=== PATIENT | female | born 1950 | race Two or more races ===

== ENCOUNTER 2022-10-03 22:10 | Inpatient (IN) | payer OTHER ==
[~2022-10-03] VITALS: Ht 152.4 cm; Wt 63.5 kg
[2022-10-03] MEDS ORDERED: ROZEREM8 MG PO (22:23)
[2022-10-03] MEDS ORDERED: CLONAZEPAM1 M1 PO (22:23)
[2022-10-12] MEDS ORDERED: RESTORIL7.5 MG PO (14:17)
[2022-10-12] MEDS ORDERED: VITAMIN D3125 MC2 PO (14:17)
[2022-10-12] MEDS ORDERED: METOPROLOL TART50 MG PO (14:17)
[2022-10-12] MEDS ORDERED: HYDRALAZINE HCL50 MG PO (14:17)
[2022-10-12] MEDS ORDERED: COZAAR50 MG PO (14:17)
== END 2022-10-12 19:00 | disposition home or self-care (01) | DRG 308 ==
LOC: ER 22:10 → ICU 10-04 16:23 → ICU-2 10-04 16:23 → ICU 10-05 12:40 → MEDI 10-10 19:00
PROVIDERS: ADMIT Internal Medicine; ATTEND Internal Medicine
PROC: B24BZZZ Ultrasonography of Heart with Aorta (ICD-10-PCS; 2022-10-04)
PROC: 02HV33Z Insertion of Infusion Device into Superior Vena Cava, Percutaneous Approach (ICD-10-PCS; principal; 2022-10-06)
PROC: 4A12X4Z Monitoring of Cardiac Electrical Activity, External Approach (ICD-10-PCS; 2022-10-10)
DX: I48.0 Paroxysmal atrial fibrillation (principal); G93.41 Metabolic encephalopathy; N39.0 Urinary tract infection, site not specified; G21.11 Neuroleptic induced parkinsonism; G30.9 Alzheimer's disease, unspecified; F02.80 Dementia in other diseases classified elsewhere, unspecified severity, without behavioral disturbance, psychotic disturbance, mood disturbance, and anxiety; E78.5 Hyperlipidemia, unspecified; F32.9 Major depressive disorder, single episode, unspecified; B96.4 Proteus (mirabilis) (morganii) as the cause of diseases classified elsewhere; G20 Parkinson's disease; Z20.822 Contact with and (suspected) exposure to COVID-19; I10 Essential (primary) hypertension; Z74.01 Bed confinement status

== ENCOUNTER 2023-05-03 18:36 | Inpatient (IN) | payer OTHER ==
[~2023-05-03] VITALS: Ht 162.6 cm; Wt 444.5 kg
[~2023-05-03 18:36] MED LIST: CLONAZEPAM1 M1 PO; COZAAR50 MG PO; HYDRALAZINE HCL50 MG PO; METOPROLOL TART50 MG PO; RESTORIL7.5 MG PO; ROZEREM8 MG PO; VITAMIN D3125 MC2 PO
[2023-05-03] MEDS ORDERED: ELIQUIS2.5 MG (18:49)
--- NOTE | 2023-05-03 18:49 | NUR ---
SE RECIBE PTE ALERTA Y DESORIENTADA EN AMBULANCIA ACOMPANA[place] DE FAMILIAR. PTE REFIERE TRAER A PTE POR FALTA DE APETITO Y DIFICULTAD PARA HABLAR, PTE SE OBSERVA CON DIFICULTAD PARA HABLAR Y NO PODER CERRAR MANDIBULA. SE MIDEN S/V A PTE Y SE REALIZA EKG. SE PRESENTA EKG A DR. SEGAL. PTE SE COLOCA EN UNIDAD DE CRITICO. PTE SE CONTECTA A MONITOR CARDIACO Y OXIMETRIA CONTINUA.
--- NOTE | 2023-05-03 20:06 | NUR ---
SE RECIBE PTE ALERTA Y DESORIENTADA Y SE COLOCA EN UNIDAD DE CRITICO #1 EN CAMA BAJA CON BARANDAS ELEVADAS. SE CONECTA A MONITOR CARDIACO, SATUROMETRO Y CANULA A 2LT, HR:118, SAT:100% Y RR:28. SE CANALIZA X2 EN BRAZO STEVE CON ANGIOS #18 Y #20 PATENTE LAVELLE DE EDEMA Y ENROJECIMIENTO. BRIAN MANZANO ADMINISTRA MEDICAMENTO EVANGELINA ORDNE MEDICA BAJO MEDIDAS ASEPTICAS. SE JASWINDER MUESTRAS DE LABORATORIO EVANGELINA ORDNE MEDICA BAJO MEDIDAS ASEPTICAS Y ESTERILES. SE INSERTA EISENBERG EVANGELINA ORDEN MEDICA BAJO MADIDAS ESTERILES, SE OBSERVA ORINA DE COLOR AMARILLO INTESO. SE OFRECE CAMBIO DE PANAL. SE OBSERVA ULCERA EN GLUTEO DERECHO. SE OBSERVAN LACERACIONES EN PIE DERECHO Y MANO IZQUIERDA. SE MANTIENE EN OBSERVACION POR TRATAMIENTO.
[2023-05-03 20:21] LABS: INR 1.09; PARTIAL THROMBOPLASTIN TIME 27.2 SECONDS (22.0-34.0); PROTHROMBIN TIME 11.4 SECONDS (9.0-11.5)
[2023-05-03 20:27] LABS: ALBUMIN 2.6 gm/dL (3.4-5.0); BILIRUBIN TOTAL 0.32 mg/dL (0.3-1.2); CREATININE SERUM 0.52 mg/dL (0.55-1.02); GFR 115.27; GLOBULINA 4.3 G/DL (2.4-3.5); POTASSIUM 4.22 mEq/L (3.5-5.1); TOTAL PROTEIN 6.9 gm/dL (6.4-8.2)
[2023-05-03 20:39] LABS: HEMATOCRIT 41.4 % (36.0-45.00); HEMOGLOBIN 12.9 g/dL (12.0-15.00); MEAN CELL VOLUME 89.1 fL (80.00-100.00); MEAN CORPUSCULAR HEMOGLOBIN 27.8 pg (27.00-32.0); MEAN CORPUSCULAR HGB CONC 31.2 g/dl (32.0-36.0); PLATELET COUNT 372 K/uL (150-450); RED BLOOD COUNT 4.65 M/uL (4.00-6.00)
[2023-05-03 20:40] LABS: RED CELL DISTRIBUTION WIDTH 16.6 % (11.5-14.5)
[2023-05-03 21:03] LABS: URINE APPEARANCE Clear; URINE BILIRRUBIN Negative (NEGATIVE); URINE BLOOD Negative; URINE COLOR Yellow; URINE GLUCOSE Negative (NEGATIVE); URINE LEUKOCYTE Negative; URINE NITRATE Negative; URINE PROTEIN Trace (NEGATIVE)
[2023-05-03 21:06] LABS: URINE BACTERIA 16.3 uL (0.0-1933); URINE EPITHELIAL CELLS 23.3 uL (0.0-38.8); URINE RBC 11.3 uL (0.0-20.8); URINE WBC 1.8 uL (0.0-23.2)
[2023-05-03 21:33] LABS: URINE CRYSTALS MANY /HPF
--- NOTE | 2023-05-03 22:03 | NUR ---
9:51PM SE NOTIFICA ABG A PEERSONAL DE TERAPIA RESPIRATORIA MR. DIAZ Y SE NOTICA CHEST PORTABLE.
[2023-05-03 22:09] LABS: ABG PH 7.546 (7.35-7.45); ABG PO2 108.2 mmHg (80-100); BASE EXCESS 1.8 mmol/l; BICARBONATE 22.9 mmol/l (23-25); SaO2 98.9 %; Tco2 23.7 mmol/l
[2023-05-03 22:46] LABS: o2 28 %
[2023-05-03 22:47] LABS: allen test SATISFACTORY; puncture site RADIAL RIGHT
[2023-05-04 00:31] LABS: CKMB 6.8 NG/ML (0.5-3.6)
[2023-05-04 06:13] LABS: ABG PH 7.558 (7.35-7.45); ABG PO2 124.6 mmHg (80-100); ABG pCO2 25.7 mmHg (35-45); BASE EXCESS 1.7 mmol/l; BICARBONATE 22.4 mmol/l (23-25)
[2023-05-04 06:14] LABS: Tco2 23.2 mmol/l; allen test SATISFACTORY; o2 32 %; puncture site RADIAL RIGHT
[2023-05-04 06:15] LABS: SaO2 99.3 %
[2023-05-04 08:10] LABS: PH,URINE 7.5 (5.0-8.0); URINE APPEARANCE Clear; URINE BILIRRUBIN Negative (NEGATIVE); URINE BLOOD NHT; URINE COLOR Yellow; URINE GLUCOSE Negative (NEGATIVE); URINE LEUKOCYTE Negative; URINE NITRATE Negative; URINE PROTEIN Trace (NEGATIVE)
[2023-05-04 08:12] LABS: URINE BACTERIA 49.1 uL (0.0-1933); URINE RBC 78.4 uL (0.0-20.8); URINE WBC 10.5 uL (0.0-23.2)
[2023-05-04 08:41] LABS: INR 1.09; PARTIAL THROMBOPLASTIN TIME 28.1 SECONDS (22.0-34.0); PROTHROMBIN TIME 11.4 SECONDS (9.0-11.5)
[2023-05-04 08:50] LABS: ALBUMIN 2.2 gm/dL (3.4-5.0); BILIRUBIN TOTAL 0.39 mg/dL (0.3-1.2); BILIRUBIN,CONJUGATED 0.14 mg/dL (0.0-0.2); BILIRUBIN,UNCONJUGATED 0.25 mg/dL (0.0-0.6); CALCIUM 8.4 mg/dL (8.5-10.1); CHOL HDL RATIO 4.2 (0-5.0); CREATININE SERUM 0.55 mg/dL (0.55-1.02); GFR 108.05; GLOBULINA 4.2 G/DL (2.4-3.5); POTASSIUM 3.73 mEq/L (3.5-5.1); TOTAL PROTEIN 6.4 gm/dL (6.4-8.2)
[2023-05-04 08:52] LABS: HEMATOCRIT 35.7 % (36.0-45.00); HEMOGLOBIN 11.3 g/dL (12.0-15.00); MEAN CELL VOLUME 88.6 fL (80.00-100.00); MEAN CORPUSCULAR HEMOGLOBIN 28.1 pg (27.00-32.0); MEAN CORPUSCULAR HGB CONC 31.7 g/dl (32.0-36.0); PLATELET COUNT 361 K/uL (150-450); RED BLOOD COUNT 4.03 M/uL (4.00-6.00); RED CELL DISTRIBUTION WIDTH 16.8 % (11.5-14.5)
[2023-05-04 09:03] LABS: C-REACTIVE PROTEIN 1.42 MG/DL (0.00-0.29); CKMB 6.8 NG/ML (0.5-3.6)
[2023-05-04 10:22] LABS: ERYTHROCYTE SEDIMENTATION RATE 56 mm/hr
[2023-05-04 18:11] LABS: CKMB 4.5 NG/ML (0.5-3.6)
[2023-05-06 07:05] LABS: HEMATOCRIT 36.2 % (36.0-45.00); HEMOGLOBIN 11.6 g/dL (12.0-15.00); MEAN CELL VOLUME 88.9 fL (80.00-100.00); MEAN CORPUSCULAR HEMOGLOBIN 28.6 pg (27.00-32.0); MEAN CORPUSCULAR HGB CONC 32.1 g/dl (32.0-36.0); PLATELET COUNT 334 K/uL (150-450); RED BLOOD COUNT 4.07 M/uL (4.00-6.00); RED CELL DISTRIBUTION WIDTH 17.1 % (11.5-14.5)
[2023-05-06 07:28] LABS: ALBUMIN 2.2 gm/dL (3.4-5.0); BILIRUBIN TOTAL 0.3 mg/dL (0.3-1.2); CALCIUM 8.2 mg/dL (8.5-10.1); CREATININE SERUM 0.68 mg/dL (0.55-1.02); GFR 84.58; GLOBULINA 3.6 G/DL (2.4-3.5); MAGNESIUM 1.9 mg/dL (1.8-2.4); PHOSPHOROUS 2.6 mg/dL (2.5-4.9); TOTAL PROTEIN 5.8 gm/dL (6.4-8.2)
[2023-05-06 07:59] LABS: POTASSIUM 2.93 mEq/L (3.5-5.1)
[2023-05-08 07:01] LABS: HEMATOCRIT 39.5 % (36.0-45.00); HEMOGLOBIN 12.8 g/dL (12.0-15.00); MEAN CELL VOLUME 87.6 fL (80.00-100.00); MEAN CORPUSCULAR HEMOGLOBIN 28.3 pg (27.00-32.0); MEAN CORPUSCULAR HGB CONC 32.3 g/dl (32.0-36.0); PLATELET COUNT 255 K/uL (150-450); RED BLOOD COUNT 4.51 M/uL (4.00-6.00); RED CELL DISTRIBUTION WIDTH 16.6 % (11.5-14.5)
[2023-05-08 08:03] LABS: ALBUMIN 2.2 gm/dL (3.4-5.0); BILIRUBIN TOTAL 0.64 mg/dL (0.3-1.2); CALCIUM 8.2 mg/dL (8.5-10.1); CREATININE SERUM 0.54 mg/dL (0.55-1.02); GFR 110.36; GLOBULINA 3.8 G/DL (2.4-3.5); MAGNESIUM 1.6 mg/dL (1.8-2.4); PHOSPHOROUS 2.5 mg/dL (2.5-4.9)
[2023-05-08 08:05] LABS: POTASSIUM 2.95 mEq/L (3.5-5.1)
[2023-05-10 08:03] LABS: INR 1.04; PARTIAL THROMBOPLASTIN TIME 34.5 SECONDS (22.0-34.0); PROTHROMBIN TIME 10.9 SECONDS (9.0-11.5)
[2023-05-10 08:37] LABS: BILIRUBIN TOTAL 0.63 mg/dL (0.3-1.2); CREATININE SERUM 0.46 mg/dL (0.55-1.02); GFR 132.79; GLOBULINA 3.5 G/DL (2.4-3.5); POTASSIUM 3.15 mEq/L (3.5-5.1); TOTAL PROTEIN 5.5 gm/dL (6.4-8.2)
[2023-05-10 09:15] LABS: HEMATOCRIT 33.6 % (36.0-45.00); HEMOGLOBIN 11.2 g/dL (12.0-15.00); MEAN CELL VOLUME 86.1 fL (80.00-100.00); MEAN CORPUSCULAR HEMOGLOBIN 28.6 pg (27.00-32.0); MEAN CORPUSCULAR HGB CONC 33.2 g/dl (32.0-36.0); PLATELET COUNT 230 K/uL (150-450); RED CELL DISTRIBUTION WIDTH 16.5 % (11.5-14.5)
[2023-05-10 12:45] LABS: ABG PH 7.522 (7.35-7.45); ABG PO2 185.5 mmHg (80-100); BASE EXCESS 5.4 mmol/l; BICARBONATE 28.1 mmol/l (23-25); SaO2 99.7 %; Tco2 29.2 mmol/l
[2023-05-10 13:02] LABS: allen test SATISFACTORY; o2 32 %; puncture site RADIAL RIGHT
[2023-05-11 07:36] LABS: ALBUMIN 2.1 gm/dL (3.4-5.0); BILIRUBIN TOTAL 0.79 mg/dL (0.3-1.2); CALCIUM 8.4 mg/dL (8.5-10.1); CREATININE SERUM 0.38 mg/dL (0.55-1.02); GFR 165.09; GLOBULINA 3.8 G/DL (2.4-3.5); PHOSPHOROUS 2.1 mg/dL (2.5-4.9); POTASSIUM 4.69 mEq/L (3.5-5.1); TOTAL PROTEIN 5.9 gm/dL (6.4-8.2)
[2023-05-11 08:17] LABS: ABG PH 7.333 (7.35-7.45); ABG PO2 28.6 mmHg (80-100); ABG pCO2 33.9 mmHg (35-45); BASE EXCESS -7.2 mmol/l; BICARBONATE 17.6 mmol/l (23-25); SaO2 47.1 %; Tco2 18.6 mmol/l; allen test SATISFACTORY; o2 100 %; puncture site RADIAL LEFT
[2023-05-11 10:36] LABS: HEMATOCRIT 35.7 % (36.0-45.00); HEMOGLOBIN 11.1 g/dL (12.0-15.00); MEAN CELL VOLUME 91.5 fL (80.00-100.00); MEAN CORPUSCULAR HEMOGLOBIN 28.6 pg (27.00-32.0); MEAN CORPUSCULAR HGB CONC 31.2 g/dl (32.0-36.0); PLATELET COUNT 247 K/uL (150-450); RED CELL DISTRIBUTION WIDTH 16.7 % (11.5-14.5)
[2023-05-11 11:04] LABS: PARTIAL THROMBOPLASTIN TIME 37.3 SECONDS (22.0-34.0); PROTHROMBIN TIME 12.4 SECONDS (9.0-11.5)
[2023-05-11 11:08] LABS: D DIMER > 35.20 MG/L
[2023-05-11 11:15] LABS: CHOL HDL RATIO 3.3 (0-5.0); MAGNESIUM 2.7 mg/dL (1.8-2.4)
[2023-05-11 11:30] LABS: CKMB 13.8 NG/ML (0.5-3.6)
[2023-05-11 12:30] LABS: ABG PO2 68.6 mmHg (80-100); ABG pCO2 38.8 mmHg (35-45); BASE EXCESS -12.6 mmol/l; BICARBONATE 17.7 mmol/l (23-25); SaO2 86.9 %; Tco2 14.7 mmol/l; allen test SATISFACTORY; o2 15.9 %; puncture site RADIAL RIGHT
[2023-05-11 12:31] LABS: ABG PH 7.197 (7.35-7.45)
== END 2023-05-11 20:42 | disposition expired ==
LOC: ER 18:36 → ICU 22:49 → ICU-2 22:49 → ICU 05-05 01:13
PROVIDERS: Emergency Medicine; General Practice; Internal Medicine; ADMIT Internal Medicine; ATTEND Internal Medicine
PROC: BW28ZZZ Computerized Tomography (CT Scan) of Head (ICD-10-PCS; 2023-05-03)
PROC: B24BYZZ Ultrasonography of Heart with Aorta using Other Contrast (ICD-10-PCS; 2023-05-03)
PROC: 0DH67UZ Insertion of Feeding Device into Stomach, Via Natural or Artificial Opening (ICD-10-PCS; principal; 2023-05-08)
PROC: 3E0G76Z Introduction of Nutritional Substance into Upper GI, Via Natural or Artificial Opening (ICD-10-PCS; 2023-05-08)
PROC: 02HV33Z Insertion of Infusion Device into Superior Vena Cava, Percutaneous Approach (ICD-10-PCS; 2023-05-09)
PROC: 0BH18EZ Insertion of Endotracheal Airway into Trachea, Via Natural or Artificial Opening Endoscopic (ICD-10-PCS; 2023-05-11)
PROC: 5A1935Z Respiratory Ventilation, Less than 24 Consecutive Hours (ICD-10-PCS; 2023-05-11)
PROC: 5A12012 Performance of Cardiac Output, Single, Manual (ICD-10-PCS; 2023-05-11)
DX: I50.9 Heart failure, unspecified (principal); I21.4 Non-ST elevation (NSTEMI) myocardial infarction; J96.90 Respiratory failure, unspecified, unspecified whether with hypoxia or hypercapnia; N39.0 Urinary tract infection, site not specified; I47.10 Supraventricular tachycardia, unspecified; I11.0 Hypertensive heart disease with heart failure; R41.82 Altered mental status, unspecified; D72.829 Elevated white blood cell count, unspecified; G30.9 Alzheimer's disease, unspecified; F02.80 Dementia in other diseases classified elsewhere, unspecified severity, without behavioral disturbance, psychotic disturbance, mood disturbance, and anxiety; M26.69 Other specified disorders of temporomandibular joint; I95.9 Hypotension, unspecified; S03.00XA Dislocation of jaw, unspecified side, initial encounter; L89.159 Pressure ulcer of sacral region, unspecified stage; B96.4 Proteus (mirabilis) (morganii) as the cause of diseases classified elsewhere; B95.2 Enterococcus as the cause of diseases classified elsewhere; B96.20 Unspecified Escherichia coli [E. coli] as the cause of diseases classified elsewhere; B96.7 Clostridium perfringens [C. perfringens] as the cause of diseases classified elsewhere; Z74.01 Bed confinement status